=== PATIENT | male | born 1940 | race Caucasian/White ===

== ENCOUNTER → 2016-12-28 05:17 | Day surgery (SDC) | payer MEDICARE ==
[2013-10-24 06:09] VITALS: BMI 23.4
[~2016-12-28 05:17] MED LIST: HYDROCODONE-APA1 TAB PO; SOMA350 MG PO; ZANTAC150 MG PO
== END | disposition home or self-care (01) ==
LOC: D.OPS 05:17 → D.PAN 07:00
DX: M77.52 Other enthesopathy of left foot and ankle (principal); Z01.810 Encounter for preprocedural cardiovascular examination; Z01.811 Encounter for preprocedural respiratory examination; Z01.812 Encounter for preprocedural laboratory examination; Z53.9 Procedure and treatment not carried out, unspecified reason

== ENCOUNTER 2017-07-12 06:35 | Day surgery (SDC) | payer OTHER ==
[2017-07-11 14:12] LABS: HEMATOCRIT 38.3 % (42.0-54.0); HEMOGLOBIN 13.3 g/dL (13.5-17.5); MCH 29.9 pg (26.0-34.0); MCHC 34.7 g/dL (31.0-37.0); MCV 86.1 fL (80.0-100.0); MEAN PLATELET VOLUME 10.6 fL (7.4-10.4); RBC 4.45 10x6/uL (4.20-6.10); WBC 7.8 10x3/uL (4.8-10.8)
[~2017-07-12] VITALS: Ht 180.3 cm; Wt 82.6 kg
--- NOTE | ~2017-07-12 | OP ---
PATIENT NAME: LIUDMILA CANTU MEDICAL RECORD: [id number] :44 LOCATION:[facility] ADMISSION DATE: SURGEON: NEPTALI OCONNOR DPM DATE OF OPERATION: 07/12/2017 PREOPERATIVE DIAGNOSES: 1. Spur, dorsal first met cuneiform joint, left foot. 2. Spur, lateral left third PIPJ. 3. Spur, medial left fourth DIPJ. POSTOPERATIVE DIAGNOSES: 1. Spur, dorsal first met cuneiform joint, left foot. 2. Spur, lateral left third PIPJ. 3. Spur, medial left fourth DIPJ. PROCEDURES: 1. Spur excision, dorsal left first met cuneiform joint. 2. Spur excision, lateral left third PIPJ. 3. Spur excision, left medial fourth DIPJ. HEMOSTASIS: Left ankle tourniquet at 250 mmHg. ANESTHESIA: General with local infiltrate utilizing lidocaine and Marcaine plain, 10 cc total. PREOPERATIVE DETAILS: The patient was taken to the OR and placed on the operating table in a supine position. This was followed by induction of general anesthesia and infiltration of local anesthetic. The left extremity was then prepped and draped in usual aseptic technique followed by exsanguination and inflation of tourniquet. PROCEDURE #1: Spur excision, dorsal left first met cuneiform joint. A #15 blade was used to create a 2-cm linear incision over the dorsal aspect of the first met cuneiform joint. The incision was deepened down through the subcutaneous tissue being sure to avoid all vital structures. An incision was made through the deep tissue and the periosteum, freeing the dorsal aspect of the joint. There were noted to be significant osteophytes and spurring, which were resected with bone saw and smoothed with bone rasp. 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 The wound was flushed and the deep tissue was repaired with 2-0 Vicryl, the subcutaneous tissue with 4-0 Rapide, and the skin was closed with 4-0 Rapide in a subcuticular technique followed by Dermabond. PROCEDURE #2: Spur excision, left lateral third PIPJ. A #15 blade was used to create a small incision over the lateral aspect of the left third digit overlying the spur. The incision was deepened down to the bone and the spur was freed from the soft tissue structures. A bone rasp was used to smooth the bone spur. Wound was flushed and the skin was closed with 4-0 Rapide in a simple interrupted technique followed by Dermabond. PROCEDURE #3: Spur removal, medial left fourth DIPJ. A #15 blade was used to create a small stab incision overlying the spur. A small rasp was used to remove the spur followed by flushing and the skin was closed with 4-0 Rapide in a simple interrupted technique followed by Dermabond. Adaptic, 4 x 4, and Conform were used to dress the wound followed by Coban. Tourniquet was OPERATIVE REPORT [id number] LIUDMILA CANTU deflated. POSTOPERATIVE DETAILS: The patient tolerated the procedure well and left the OR with vital signs stable and vascular status at preoperative levels. The patient was transported to recovery per anesthesia in stable condition. TRANSINT:[id number] Voice Confirmation ID: [id number] DOCUMENT ID: [id number] NEPTALI OCONNOR DPM at 0755 CC: [id number] DICTATION DATE: 07/12/17 1046 [facility] BOSS: 07/12/17 1404 [facility] 07/12/17 [facility] [address] [place] [address]
[~2017-07-12 06:35] MED LIST changes: +NORCO 7.5/325 T1 TA1 PO
[2017-07-12 08:17] VITALS: BP 107/67; Ht 180.3 cm; Wt 82.6 kg
== END 2017-07-12 12:44 | disposition home or self-care (01) ==
LOC: D.OPS 06:35 → D.PAN 07:45 → D.OPS 07:45 → D.PAN 08:55 → D.OPS 12:44
PROVIDERS: Anesthesiology
DX: M77.52 Other enthesopathy of left foot and ankle (principal); Z01.812 Encounter for preprocedural laboratory examination

== ENCOUNTER 2019-07-16 09:56 | Inpatient (IN) | payer OTHER ==
[~2019-07-16] VITALS: Ht 180.3 cm; Wt 83.1 kg
--- NOTE | ~2019-07-16 | OP ---
PATIENT NAME: LIUDMILA CANTU MEDICAL RECORD: [id number] :44 LOCATION:[facility] ADMISSION DATE:07/18/19 SURGEON: TEVIN MONROY MD DATE OF OPERATION: 07/18/2019 SURGEON: Tevin Monroy MD ANESTHESIA: General endotracheal, Dr. Shoemaker. OPERATION PERFORMED: Right carotid endarterectomy with patch angioplasty. PREOPERATIVE DIAGNOSIS: Severe right internal carotid artery stenosis. POSTOPERATIVE DIAGNOSIS: Severe right internal carotid artery stenosis. INDICATION FOR OPERATION: Symptomatic severe right internal carotid artery stenosis. FINDINGS OF THE OPERATION: There were no EEG changes with clamping or unclamping of the carotid artery. The carotid plaque was quite extensive and the area of stenosis greater than 90%. DESCRIPTION OF PROCEDURE: After informed consent, adequate preoperative medication evaluation, the patient was brought to the operating room, placed on the table in the supine position. After induction of general endotracheal anesthesia and application of appropriate monitoring devices, the right neck was prepped and draped in sterile field, utilizing Betadine scrub, alcohol, and Betadine solution. Betadine-impregnated drape was also used. After timeout, a transverse incision was made in a skin crease. Dissection carried down the fascia. Hemostasis maintained with electrocautery. Facial vein was identified and divided. Utilizing sharp dissection, the common carotid, internal and external carotid arteries were dissected free from surrounding structures, protecting the neurological structures. The patient was given a calculated dose of heparin, after 3 minutes, clamps were applied and after 2 minutes, no EEG change. The arteriotomy was made and extended with Guillaume scissors. Artery underwent endarterectomy sharply. Artery underwent extensive debridement and irrigation. Utilizing a CorMatrix vascular patch and running 6-0 Prolene suture, the arteriotomy was closed with a patch angioplasty technique. All maneuvers to remove trapped air were performed. The clamps removed sequentially. There were no EEG changes. The patient was given a calculated dose of protamine to reverse the heparin. Hemostasis was achieved. A #7 Rajesh-Vasquez drain was left in depths of wound and brought through the base of the neck. Neck was again irrigated. Instrument count and sponge count were correct times 2. Neck was closed in layers utilizing 3-0 Vicryl on the platysma, 5-0 subcuticular Monocryl on the skin. Sterile dressings were applied. The patient tolerated the procedure well and transferred to CV ICU in satisfactory condition. TRANSINT:[id number] Voice Confirmation ID: [id number] DOCUMENT ID: [id number] OPERATIVE REPORT [id number] LIUDMILA CANTU EDWARD MD CC: [id number] DICTATION DATE: 07/18/19 1444 RUG HOOKER: 07/18/19 1658 ADM IN [place] [place] [id number] [place] [address]
[2019-07-16] MEDS ORDERED: BAYER CHEWABLE81 MG PO (10:45)
[2019-07-16] MEDS ORDERED: PLAVIX75 MG PO (10:45)
[2019-07-16 12:12] LABS: HEMATOCRIT 42.4 % (42.0-54.0); HEMOGLOBIN 14.4 g/dL (13.5-17.5); MCH 29.8 pg (26.0-34.0); MCV 87.6 fL (80.0-100.0); RBC 4.84 10x6/uL (4.20-6.10); RDW 13.9 % (11.5-14.5); WBC 9.3 10x3/uL (4.8-10.8)
[2019-07-16 12:16] LABS: APTT 29.4 SECONDS (22.8-39.4); INR 1.09 (0.85-1.17)
[2019-07-16 12:20] LABS: ALBUMIN 3.9 g/dL (3.4-5.0); BILIRUBIN - TOTAL 0.99 mg/dL (0.2-1.3); CALCIUM 9.3 mg/dL (8.5-10.1); CREATININE - SERUM 1.8 mg/dL (0.6-1.3); PROTEIN - SERUM 7.4 g/dL (6.4-8.2)
[2019-07-16 13:30] LABS: BILIRUBIN NEGATIVE (NEGATIVE); GLUCOSE NEGATIVE (NEGATIVE); KETONE NEGATIVE (NEGATIVE); NITRITE NEGATIVE (NEGATIVE); SPECIFIC GRAVITY 1.015 (1.005-1.020); UROBILINOGEN NORMAL (NORMAL)
[2019-07-18] VITALS (21 sets, daily range): BP systolic 102–149; BP diastolic 45–82; BMI 25.5; BMI 26.0
--- NOTE | 2019-07-18 14:12 | NUR ---
PT ARRIVED TO UNIT AT THIS TIME VIA BED ACCOMPANIED BY HOSPITAL STAFF. PT LETHARGIC BUT AWAKENS AND ABLE TO ANSWER ALL QUESTIONS APPROPRIATELY. NEURO CHECKS WDL. INCISION SITE TO RT NECK DRESSING CDI WITH NO S/S HEMATOMA, EDEMA, OR DRAINAGE. WILL CONTINUE PLAN OF CARE.
--- NOTE | 2019-07-18 15:00 | NUR ---
PER DR MONROY, TURN DOPAMINE OFF, DC AL AT 1800, AND DC HEAD STRIPS AT 1600.
--- NOTE | 2019-07-18 15:26 | NUR ---
PTS AT BEDSIDE. DR KAPLAN AT BEDSIDE SPEAKING WITH PT AND PTS . VSS. NO ACUTE DISTRESS NOTED. WILL CONTIUE PLAN OF CARE.
--- NOTE | 2019-07-18 15:44 | NUR ---
PT TOLERATES SIPS OF WATER.
--- NOTE | 2019-07-18 16:12 | NUR ---
IS ATTEMPT UP TO 1750.
--- NOTE | 2019-07-18 18:13 | NUR ---
1800 AL CATHETER DCD TIP INTACT URINAL PROVIDED PT DENIES ALL NEEDS CALL LIGHT WITHIN REACH
--- NOTE | 2019-07-18 19:15 | NUR ---
PT A/OX4, O2 @ 4L VIA N/C, LUNGS CLEAR, DRSG INTACT TO RIGHT NECK, KIRBY DRAIN TO RIGHT UPPER CHEST WITH BLOODY DRAINAGE, LEFT TLSC INTACT WITH IVF'S INFUSING, LEFT WRIST A-LINE INTACT AND PATENT, URINAL IN REACH @ BEDSIDE, VITALS STABLE
--- NOTE | 2019-07-18 21:30 | NUR ---
PT RESTING QUIETLY WITH EYES CLOSED, NO DISTRESS NOTED
--- NOTE | 2019-07-18 23:30 | NUR ---
PT SLEEPING, AROUSES EASILY WITH NO C/O, VITALS STABLE
[2019-07-19] VITALS (25 sets, daily range): BP systolic 115–153; BP diastolic 60–84; Ht 180.3 cm; Wt 83.1 kg
--- NOTE | 2019-07-19 09:00 | NUR ---
RECEIVED REPORT ON PATIENT AND ASSUMED CARE. VSS. SITTING UP EATING BREAKFAST, AT BEDSIDE.
--- NOTE | 2019-07-19 09:10 | NUR ---
0715-RECIEVED AWAKE AND ALERT-HOB ELEVATED 30-R NECK SOFT TO TOUCH-R JPRATT COMPRESSED FOR SMALL AMOUNT OF SEROUS DRAINAGE-L CVL IN PLACE-NTG STARTED PER PARAMETER AT .15MCG/MIN-ABP 157/89 SR ON MONITOR-MCMAHON =STRONG-FACIAL SYMETRICAL-ABLE TO MOVE EYELIDS AND BROWS EASILY 0830- AT BEDSIDE-ADHERED TO MASK REQUIREMENT-ASSISTED PT TO SIDE OF BED-STATED -DIZZY-NOTED ABP 139/89-NTG AT 0.15-TABLE PLACED IN FRONT OF PT- PT STATED DIZZY GETTING BETTER
--- NOTE | 2019-07-19 10:04 | NUR ---
ART LINE DISCONTINUED PER ORDER, DIRECT PRESSURE HELD FOR 3 MINUTES AND DRESSED WITH 2X2 AND TEGADERM, CLEANED WITH BETADINE. NO HEMATOMA OR BLEEDING NOTED. CVP MONITORING DISCONTINUED. NO NEEDS A THIS TIME. VSS.
--- NOTE | 2019-07-19 10:22 | NUR ---
PATIENT UP WALKING IN [place] WITH PT.
--- NOTE | 2019-07-19 12:26 | NUR ---
CV NURSE AT BEDSIDE AND REVIEWED WITH PT AND -POST OP CARE AT HOME-STRESSED TO VISUALLY LOOK IN [place] FOR SWELLING-PROVIDED WITH TELEPHONE NUMBERS CONTACT ASSISTED PT TO CHAIR-TOLERATED WELL
--- NOTE | 2019-07-19 19:00 | NUR ---
REPORT RECEIVED INITIAL ASSESSMENT COMPLETE PT ALERT AND ORIENTED DENIES PAIN OR DISCOMFORT RIGHT NECK INCISION CDI. NEURO INTACT CM READING SR WITHOUT ECTOPY ON ROOM AIR. VSS CPOC
--- NOTE | 2019-07-19 19:18 | MORECARE ---
CASE MANAGEMENT DISCHARGE SUMMARY PATIENT: LIUDMILA CANTU UNIT: [id number] ADM DATE: 07/18/19 AGE: 78 : 44 SEX: M ROOM/BED: D.03 AUTHOR: ALEXA,DOC PHYSICIAN: REFERRING PHYSICIAN: NATALIA MONROY MD DATE OF SERVICE: 07/19/19 Discharge Plan Patient Name: LIUDMILA CANTU Facility: [facility]:[place] : 1940 Planned Disposition: Home Anticipated Discharge Date: Discharge Date: Expected LOS: Initial Reviewer: [email or web address] Initial Review Date: 07/18/2019 Generated: 07/19/19 8:18 pm Comments DCP- Discharge Planning Updated by [email or web address]: Lissetet Arreguin on 07/19/19 6:[address] Patient Name: LIUDMILA CANTU Admission Status: Urgent Accout number: [id number] Admission Date: 07-18-2019 : 1940 Admission Diagnosis:OCCLUSION AND STENOSIS OF RIGHT CAROTID ARTERY Attending: NATALIA MONROY Current LOS: 1 Anticipated DC Date: Planned Disposition: Home Primary Insurance: [employer] Discharge Planning Comments: CM met with patient at bedside after explaining CM role and obtaining verbal consent. Patient lives at home with his where he is independent with his care and plans to return there upon discharge. Patient feels this would be a safe discharge. CM discussed availability / needs of home health and medical equipment. Patient denies any discharge needs at this time. Patient states he will have his family drive him home upon discharge. CM will continue to follow and assist as needed with discharge planning / needs. Core Maker: Lissette Arreguin DCPIA - Discharge Planning Initial Assessment Updated by [email or web address]: Lissette Arreguin on 07/19/19 7:14 pm * Is the patient Alert and Oriented? Yes * How many steps to enter\exit or inside your home? * PCP Enriqueta Dye APN * Pharmacy [facility] [address] * Preadmission Environment Home with Family * ADLs Independent * Equipment Cane * List name and contact numbers for known caregivers / representatives who currently or will assist patient after discharge: PIERCE CANTU - SPOUSE - [phone], * Verbal permission to speak to the caregivers and representatives has been obtained from the patient. Yes * Community resources currently utilized None * Additional services required to return to the preadmission environment? No * Can the patient safely return to the preadmission environment? Yes * Has this patient been hospitalized within the prior 30 days at any hospital? No Coverage Notice Reviewer: [email or web address] Patricia Arreguin Notice Issued Date-Time: 07/19/2019 11:53 Notice Type: IM Discharge Notice Notice Delivered To: Patient Relationship to Patient: Self Mail Room Name: Delivery Method: HAND - Hand Delivered Trish Days: Prior Verbal Notification: Recipient Understood Notice: Yes Recipient Signature: Yes Med Rec Note Co-signed by Attending: Coverage Notice Comment: Patient Name: LIUDMILA CANTU Page [id number] at 1918 All edits/amendments must be made on the electronic document DICTATION DATE: 07/19/191917 WINDOWS TECHNICAL SPECIALIST: DANNY 07/19/191917 RPT#: [id number] DC DATE: STATUS: ADM IN [facility] [address] [place] [address] END OF REPORT
--- NOTE | 2019-07-19 21:30 | NUR ---
PT AWAKE ALERT AND ORIENTED REQUESTING CURTAIN PULLED SO HE CAN GET REST. INCISION CDI NO SWELLING NEURO INTACT WILL CONTINUE TO MONITOR
--- NOTE | 2019-07-19 23:00 | NUR ---
REASSESSMENT COMPLETE NO CHANGES CPOC
[2019-07-20] VITALS (11 sets, daily range): BP systolic 120–145; BP diastolic 66–91
--- NOTE | 2019-07-20 03:00 | NUR ---
PT REASSESSMENT COMPLETED AT THIS TIME, NO CHANGES NOTED FROM NURSE REPORT OR PREVIOUS EXAMS, VSS, WILL MONITOR FOR CHNAGES
--- NOTE | 2019-07-20 05:00 | NUR ---
PT RESTING WITH EYES CLOSED, RESP EVEN AND NON LABORED, VSS
--- NOTE | 2019-07-20 10:52 | NUR ---
1045: [facility] DC'[facility]. MANUAL PRESSURE HELD X 3MIN. DRESSED WITH 2X2 AND TEGADERM.
--- NOTE | 2019-07-20 11:09 | NUR ---
1105: DISCHARGED HOME WITH . ESCORTED TO VEHICLE BY WHEELCHAIR.
--- NOTE | 2019-07-22 15:47 | MORECARE ---
CASE MANAGEMENT DISCHARGE SUMMARY PATIENT: LIUDMILA CANTU UNIT: [id number] ADM DATE: 07/18/19 AGE: 78 : 42 SEX: M ROOM/BED: D.[facility] AUTHOR: ALEXA,DOC PHYSICIAN: REFERRING PHYSICIAN: NATALIA MONROY MD DATE OF SERVICE: 07/22/19 Discharge Plan Patient Name: LIUDMILA CANTU Facility: [facility]:[place] : 1940 Planned Disposition: Home Anticipated Discharge Date: Discharge Date: 07/20/2019 Expected LOS: Initial Reviewer: [email or web address] Initial Review Date: 07/18/2019 Generated: 07/22/19 4:47 pm Comments DCP- Discharge Planning Updated by [email or web address]: Lissette Arreguin on 07/19/19 6:[address] Patient Name: LIUDMILA CANTU Admission Status: Urgent Accout number: [id number] Admission Date: 07-18-2019 : 1940 Admission Diagnosis:OCCLUSION AND STENOSIS OF RIGHT CAROTID ARTERY Attending: NATALIA MONROY Current LOS: 1 Anticipated DC Date: Planned Disposition: Home Primary Insurance: [employer] Discharge Planning Comments: CM met with patient at bedside after explaining CM role and obtaining verbal consent. Patient lives at home with his where he is independent with his care and plans to return there upon discharge. Patient feels this would be a safe discharge. CM discussed availability / needs of home health and medical equipment. Patient denies any discharge needs at this time. Patient states he will have his family drive him home upon discharge. CM will continue to follow and assist as needed with discharge planning / needs. Commercial Green Building Designer: Lissette Arreguin DCPIA - Discharge Planning Initial Assessment Updated by [id number]: Lissette Arreguin on 07/19/19 7:14 pm * Is the patient Alert and Oriented? Yes * How many steps to enter\exit or inside your home? * PCP Enriqueta Dye APN * Pharmacy [facility] [address] * Preadmission Environment Home with Family * ADLs Independent * Equipment Cane * List name and contact numbers for known caregivers / representatives who currently or will assist patient after discharge: PIERCE CANTU - SPOUSE - [phone], * Verbal permission to speak to the caregivers and representatives has been obtained from the patient. Yes * Community resources currently utilized None * Additional services required to return to the preadmission environment? No * Can the patient safely return to the preadmission environment? Yes * Has this patient been hospitalized within the prior 30 days at any hospital? No Coverage Notice Reviewer: [id number] Patricia Arreguin Notice Issued Date-Time: 07/19/2019 11:53 Notice Type: IM Discharge Notice Notice Delivered To: Patient Relationship to Patient: Self Planetarium Sky Show Technician Name: Delivery Method: HAND - Hand Delivered Trish Days: Prior Verbal Notification: Recipient Understood Notice: Yes Recipient Signature: Yes Med Rec Note Co-signed by Attending: Coverage Notice Comment: Last DP export: 07/19/19 6:18 p Patient Name: LIUDMILA CANTU Page [id number] at 1547 All edits/amendments must be made on the electronic document DICTATION DATE: 07/22/191546 AUTOMOBILE TIRE BUILDER: DANNY 07/22/19 1547 RPT#: [id number] DC DATE:07/20/19 STATUS: DIS IN [facility] [address] [place] [address] END OF REPORT
== END 2019-07-20 11:05 | disposition home or self-care (01) | DRG 39 ==
LOC: D.SDCHOLD 07-18 08:25 → D.CVICU 07-18 08:25 → D.SDCHOLD 07-18 09:30 → D.CVICU 07-18 12:56
PROVIDERS: ADMIT Internal Medicine Cardiovascular Disease; ATTEND Internal Medicine Cardiovascular Disease
PROC: 03UK0JZ Supplement Right Internal Carotid Artery with Synthetic Substitute, Open Approach (ICD-10-PCS; 2019-07-18)
PROC: 03CK0ZZ Extirpation of Matter from Right Internal Carotid Artery, Open Approach (ICD-10-PCS; principal; 2019-07-18 09:30)
DX: I65.21 Occlusion and stenosis of right carotid artery (principal)